=== PATIENT | female | born 2000 | race Caucasian/White ===

== ENCOUNTER 2020-08-24 08:55 | Emergency (ER) | payer OTHER ==
[2020-08-24 09:09] VITALS: BMI 25.8
[2020-08-24] MEDS ORDERED: ASPIRIN 325 MG TABLET PO ONE (09:16)
[2020-08-24] MEDS ORDERED: ACETAMINOPHEN 325 MG TABLET (FP) PO ONE (09:17)
[2020-08-24] MEDS ORDERED: morphine CARPU-JECT 4 MG/1 ML DISP.SYRIN IVPUSH ONE (09:31)
--- OUTSIDE RECORDS SUMMARY | 2020-08-24 09:35 | XMS ---
:2000 Author Organization [facility] Care Team Providers Name Role Phone Radha Quevedo Unavailable Unavailable Other, Doctor Unavailable Unavailable Bridget Colbert Unavailable Unavailable Haja Hammonds Unavailable Unavailable Re-disclosure Warning The records that you are about to access may contain information from federally- assisted alcohol or drug abuse programs. If such information is present, then the following federally mandated warning applies: This information has been disclosed to you from records protected by federal confidentiality rules (42 CFR part 2). The federal rules prohibit you from making any further disclosure of this information unless further disclosure is expressly permitted by the written consent of the person to whom it pertains or as otherwise permitted by 42 CFR part 2. A general authorization for the release of medical or other information is NOT sufficient for this purpose. The Federal rules restrict any use of the information to criminally investigate or prosecute any alcohol or drug abuse patient.The records that you are about to access may contain highly sensitive health information, the redisclosure of which is protected by Article 27-F of the [facility] Public Health law. If you continue you may haveaccess to information: Regarding HIV / AIDS; Provided by facilities licensed or operated by the [facility] Office of Mental Health; or Provided by the [facility] Office for People With Developmental Disabilities. If such information is present, then the following [facility] mandated warning applies: This information has been disclosed to you from confidential records which are protected by state law. State law prohibits you from making any further disclosure of this information without the specific written consent of the person to whom it pertains, or as otherwise permitted by law. Any unauthorized further disclosure in violation of state law may result in a fine or custodial sentence or both. A general authorization for the release of medical or other information is NOT sufficient authorization for further disclosure. Encounters Encounter Providers Location Date Indications Data Source(s ) Inpatient Attender: Haja 5T-5T 08/20/2020 ACUTE KIDNEY [facility] OranAttender: 09:54:[address] [facility] giselle Gill HuAttender: EDT - Doctor 08/23/2020 OtherAdmitter: 11:52:00 AM Haja Hammonds EDT ACUTE KIDNEY FAILURE Patient discharged. Emergency Attender: Doctor 5T-EMERG 08/19/2020 LT [facility] OtherAttender: Radha 10:05:00 AM EDT - SIDE BA [facility] 08/19/2020 PAIN 03:18:00 PM EDT LT [facility] SIDE BACK PAIN Patient discharged. Medications Medication Brand Start Product Dose Route Administrative Pharmacy [facility] Indications Reaction Description Data Name Date Form Instructions Instructions Source(s) Ciprofloxac Cipro [id number] active Cipro [facility] in 500 MG 500 mg 2019 {tab( Health Oral Tablet oral 10:09: s)} System [Cipro] tablet 29 AM Cipro 500 EDT mg oral tablet Avoid prolonged or excessive exposure to direct and/or artificial sunlight while taking this medication.Check with your d octor before becoming .Do not take dairy products, antacids, or iron prepar ations within one hour of this medication.Finish all this medication un less otherwise directed by prescriber.Medication should be taken wi th plenty of water. Ondansetron 4 ondansetron 4 08/19/2020 1 [id number] active Ondansetron [facility] MG mg oral tablet, 02:49:54 PM {tab(s)} Hydrochloride Health Disintegrating disintegrating EDT System Oral Tablet ondansetron 4 mg oral tablet, disintegrating Ibuprofen 800 Alivio 800 mg 08/19/2020 1 [id number] aborted Alivio [facility] MG Oral Tablet oral tablet 02:48:04 PM {tab(s)} Health Alivio 800 mg EDT System oral tablet Do not take this drug if you are pregnan t.It is very important that you take or use this exactly as directed. Do not skip d oses or discontinue unless directed by your doctor.May cause drowsiness or dizziness .Obtain medical advice before taking any non-prescription drugs as some may affec t the action of this medication.Take with food or milk. Ciprofloxacin Cipro 08/19/2020 1 {tab(s)} [id number] active Cipro [facility] 500 MG Oral 500 mg 02:47:24 PM Health Tablet [Cipro] oral EDT Syste m Cipro 500 mg tablet oral tablet Avoid prolonged or excessive exposure to direct and/or artificial sunlight while taking this medication.Check with your d octor before becoming .Do not take dairy products, antacids, or iron prepar ations within one hour of this medication.Finish all this medication un less otherwise directed by prescriber.Medication should be taken wi th plenty of water. Tamsulosin Flomax 08/19/2020 1 {cap(s)} [id number] active Flomax [facility] hydrochloride 0.4 mg 02:46:53 PM Health 0.4 MG Oral oral EDT System Capsule capsule [Flomax] Flomax 0.4 mg oral capsule It is very important that you take or us e this exactly as directed. Do not skip doses or discontinue unless directed by your doctor.May cause drowsiness. Alcohol may intensify this effect. Use care whe n operating dangerous machinery.Some non-prescription drugs may aggravate you r condition. Read all labels carefully. If a warning appears, check with your docto r before taking.Swallow whole. Do not crush. Insurance Providers Payer name Policy type Policy ID Covered Covered green party's Policy P ok / Coverage green party ID relationship to [facility] type carlos Medicaid GME Medicaid [id number] 1 [id number] T [facility] [employer] Medicaid [id number] 1 [id number] Self Pay Self Pay Self Pay 1 Self Pay Problems, Conditions, and Diagnoses Code Display Name Description Problem Type Effective Dates Data Source(s) N20.1 Ureteral calculus, Ureteral calculus, 64393-4 0 [facility] left left 12:00:00 AM EDT Health Sy stem N17.9 Acute kidney Acute kidney 53679-8 08/21/2020 [facility] failure failure 12:00:00 AM EDT Health Sy stem N20.0 [place] [address]-3 08/21/2020 [facility] left side left side 12:00:00 AM EDT Health Sy stem N39.0 UTI (urinary tract UTI (urinary tract 20817-5 0 [facility] infection) infection) 12:00:00 AM EDT Health Sy stem N20.9 Urolithiasis Urolithiasis 19509-4 08/19/2020 [facility] 12:00:00 AM EDT Health Sy stem R10.9 Left flank pain Left flank pain 76343-7 08/19/2020 [facility] 12:00:00 AM EDT Health Sy stem N39.0 Urinary tract UTI (urinary tract Diagnosis 08/21/2020 [facility] infection, site infection) 03:39:00 AM EDT [place] [facility] not specified N20.1 Calculus of ureter Ureteral calculus, Diagnosis 0 [facility] left 03:39:00 AM EDT [facility] N20.0 Calculus of kidney Kidney stone on Diagnosis 08/21/2020 [facility] left side 03:39:00 AM EDT [facility] N17.9 Acute kidney Acute kidney Diagnosis 08/21/2020 [facility] failure, failure 03:39:00 AM EDT [facility] unspecified ACUTE KIDNEY ACUTE KIDNEY Diagnosis 08/21/2020 [facility] FAILURE FAILURE 03:39:00 AM EDT [facility] RT SIDE ABD PAIN RT SIDE ABD PAIN Diagnosis 08/20/2020 [facility] 09:54:00 PM EDT [facility] N20.9 Urinary calculus, Urolithiasis Diagnosis 08/19/2020 [facility] unspecified 10:05:00 AM EDT [facility] R10.9 Unspecified Left flank pain Diagnosis 08/19/2020 [facility] abdominal pain 10:05:[facility] BACK Diagnosis 0 [facility] PAIN PAIN 10:05:00 AM EDT [facility] Surgeries/Procedures Procedure Description Date Indications Data Source(s) CBC w/Auto 08/23/2020 [facility] th Differential- MV Only 06:00:00 AM EDT Sys tem - 08/23/2020 09:57:00 AM EDT XR Fluoroscopy < 1 Hr 08/22/2020 [facility] io Health XR Fluoroscopy < 1 Hr 12:59:00 PM EDT Sys tem - 08/22/2020 12:59:00 PM EDT I. Phosphorus 08/22/2020 [facility] 06:00:00 AM EDT System - 08/22/2020 01:04:56 AM EDT US Renal US Renal 08/21/2020 [facility] 09:12:00 AM EDT System - 08/21/2020 09:12:00 AM EDT XR Chest PA and Left 08/21/2020 [facility] Lateral XR Chest PA and 05:04:00 AM EDT S ystem Left Lateral - 08/21/2020 05:04:00 AM EDT XR Chest AP and Decube 08/21/2020 [facility] Left Lateral 03:44:40 AM EDT System - 08/21/2020 03:54:40 AM EDT Computed tomography of 08/19/2020 [facility] abdomen (procedure) 11:34:00 AM EDT Syste m - 08/19/2020 11:34:00 AM EDT Venous Blood Gas 08/19/2020 [facility] 10:12:09 AM EDT System - 08/19/2020 10:22:00 AM EDT Aerobic Culture, Urine 08/19/2020 [facility] 10:12:09 AM EDT System - 08/19/2020 10:22:00 AM EDT Results ID Date Data Source [id number] 08/23/2020 12:53:46 PM EDT [facility] alth System Name Value Range Interpretation Description Data Sup porting Code Source(s) Document(s ) Deprecated Micro Result Normal (applies Aerobic [facility] Bacteria Final Culture to non-numeric Culture, Health identified Reading results) Urine System in Urine by Note::"MULTIPL Aerobe E BACTERIAL culture MORPHOTYPES PRESENT, POSSIBLE CONTAMINATION, SUGGEST RECOLLECTION IF CLINICALLY INDICATED". ID Date Data Source [id number] 08/23/2020 12:53:46 PM EDT [facility] alth System Name Value Range Interpretation Description Data Sup porting Code Source(s) Document(s ) Color YELLOW Normal (applies Color [facility] to non-numeric Health results) System Specific gravity 1.020 Normal (applies Urine Specific [facility] of Urine to non-numeric [facility] results) System Appearance of CLEAR Normal (applies Urine [facility] Urine to non-numeric Appearance Health results) System Glucose,UA NEGATIVE Normal (applies Glucose, UA [facility] to non-numeric Health results) System BilirubinUrine SMALL Abnormal Bilirubin [facility] (applies to Urine Health non-numeric System results) Protein TRACE Normal (applies Protein [facility] [Mass/volume] in to non-numeric Health Serum or Plasma results) System pH.. 8.5 Above high pH.. [facility] {pH_units} normal Health System Leukocytes 2 {/HPF} Normal (applies White Blood [facility] [#/volume] in to non-numeric Cells Health Unspecified results) System specimen by Automated count Ketones 15 mg/dL Abnormal Ketones UA [facility] [Mass/volume] in (applies to Health Urine non-numeric System results) Nitrate+Nitrite NEGATIVE Normal (applies Nitrite [facility] [Mass/volume] in to non-numeric Health Unspecified results) System specimen Leukocyte TRACE Abnormal Leukocyte [facility] esterase (applies to Esterase Health [Units/volume] non-numeric Concentration System in Urine results) Urobilinogen 1.0 mg/dL Normal (applies Urobilinogen [facility] [Mass/volume] in to non-numeric [facility]A Health Urine results) System Mucus PRESENT Normal (applies Mucus [facility] to non-numeric Health results) System Epithelial cells 5 {/HPF} Normal (applies Epithelial [facility] [Presence] in to non-numeric Cells Health Unspecified results) System specimen by Wet preparation RedBloodCells 20 {/HPF} Normal (applies Red Blood [facility] to non-numeric Cells Health results) System Bacteria 1+ Abnormal Bacteria [facility] [Presence] in (applies to Health Unspecified non-numeric System specimen results) UrineBlood MODERATE Abnormal Urine Blood [facility] (applies to Health non-numeric System results) ID Date Data Source [id number] 08/23/2020 12:53:46 PM EDT [facility] System Name Value Range Interpretation Description Data Sup porting Code Source(s) Document(s ) Amphetamine Negative Normal (applies Amphetamine [facility] [Mass/volume] to non-numeric Level, Urine Health in Urine results) System Cut-off = 1000 ng/mL Benzodiazepines Negative Normal (applies Benzodiazepines, [facility] [Mass/volume] in to non-numeric Urine Health S ystem Urine results) Cut-off = 200 ng/mL Cocaine Negative Normal (applies Cocaine [facility] metabolites.other to non-numeric Metabolite Health System [Mass/volume] in Urine results) Screen, Urine Cut-off = 300 ng/mL Barbiturates Negative Normal (applies to Barbiturate [facility] [Mass/volume] in non-numeric Screen, Urine Health System Urine by Screen results) method Cut-off = 200 ng/mL Phencyclidine Negative Normal (applies Phencyclidine, Urine [facility] [Mass/volume] in to non-numeric Health S ystem Urine results) Cut-off = 25 ng/mL Methadone Negative Normal (applies to Methadone Level, [facility] Health [Mass/volume] in non-numeric Urine System Urine results) Cut-off = 300 ng/mL [id number],Urine Negative Normal (applies to Opiate 300, [facility] non-numeric results) Urine System Cut-off = 300 ng/mL Cannabinoid(THC) Positive Abnormal (applies Cannabinoid (THC) [facility] to non-numeric System results) Cutt-off = 50These results are for medic al treatment only. The positive findings are unconfirmed. Request confirmatory/quanti tative test if needed. ID Date Data Source [id number] 08/23/2020 12:53:46 PM EDT [facility] System Name Value Range Interpretation Description Data Sup porting Code Source(s) Document(s ) Hematocrit 40.1 % Normal (applies Hematocrit [facility] [Volume to non-numeric Health Fraction] of results) System Blood Leukocytes 14.5 Above high WBC Count [facility] [#/volume] in {10^3_uL normal Health Unspecified } System specimen by Automated count Hemoglobin 13.0 Normal (applies Hemoglobin [facility] [Mass/volume] in {gm/dL} to non-numeric Health Blood results) System Erythrocytes 4.45 Normal (applies RBC Count [facility] [#/volume] in {10^6_uL to non-numeric Health Blood by } results) System Automated count Erythrocyte mean 90.1 fl Normal (applies MCV [facility] corpuscular to non-numeric Health volume [Entitic results) System volume] by Automated count Erythrocyte mean 32.4 Below low normal MCHC [facility] corpuscular {gm/dL} Health hemoglobin System concentration [Mass/volume] by Automated count Erythrocyte mean 29.2 pg Normal (applies MCH [facility] corpuscular to non-numeric Health hemoglobin results) System [Entitic mass] by Automated count Monocytes 0.5 Normal (applies Monocyte # [facility] [#/volume] in {10^3_uL to non-numeric Health Blood by Manual } results) System count Platelets 291 Normal (applies Platelet Count [facility] [#/volume] in {10^3_uL to non-numeric Health Plasma by } results) System Automated count Platelet mean 10.7 fl Above high MPV [facility] volume [Entitic normal Health volume] in Blood System by Automated count Erythrocyte 12.4 % Normal (applies RDW-CV [facility] distribution to non-numeric Health width [Entitic results) System volume] by Automated count Eosinophils 0.02 Below low normal Eosinophil # [facility] [#/volume] in {10^3_uL Health Blood } System Basophils 0.03 Normal (applies Basophil # [facility] [#/volume] in {10^3_uL to non-numeric Health Blood by } results) System Automated count Lymphocyte 1.3 Normal (applies Lymphocyte # [facility] percent {10^3_uL to non-numeric Health differential } results) System count (procedure) Neutrophils 12.5 Above high Neutrophil # [facility] [#/volume] in {10^3_uL normal Health Body fluid } System Neutrophils/100 86.8 % Above high Neutrophil % [facility] leukocytes in normal Health Blood by System Automated count Eosinophils/100 0.1 % Normal (applies Eosinophil % [place] [facility] leukocytes in to non-numeric Health Unspecified results) System specimen Basophils/100 0.2 % Normal (applies Basophil % [facility] leukocytes in to non-numeric Health Unspecified results) System specimen by Manual count Monocytes/100 3.3 % Normal (applies Monocyte % [facility] leukocytes in to non-numeric Health Blood results) System Lymphocytes 9.1 % Below low normal Lymphocyte % [facility] [#/volume] in Health Blood by System Automated count Nucleated 0.0 Normal (applies NRBC % [facility] erythrocytes {/100_WB to non-numeric Health [#/volume] in C} results) System Body fluid ImmatureGranuloc 0.5 % Normal (applies Immature [facility] ytes% to non-numeric Granulocytes % Health results) System NRBC# 0.00 Below low normal NRBC # [facility] {10^3_uL Health } System ImmatureGranuloc 0.07 Normal (applies Immature [facility] ytes# {10^3_uL to non-numeric Granulocytes # Health } results) System ID Date Data Source [id number] 08/23/2020 12:53:46 PM EDT [facility] System Name Value Range Interpretation Description Data Sup porting Code Source(s) Document(s ) Creatine 46 {IU/L} Normal (applies Creatine [facility] kinase.MB to non-numeric Kinase, Serum Health Syst em [Mass/volume results) ] in Serum or Plasma ID Date Data Source [id number] 08/23/2020 12:53:46 PM EDT [facility] System Name Value Range Interpretation Code Description Data Samanta rce(s) Supporting Document(s ) Lipase 9 U/L Normal (applies to Lipase, Serum [facility] [Enzymatic non-numeric Health System activity/vo results) lume] in Serum or Plasma ID Date Data Source [id number] 08/23/2020 12:53:46 PM EDT [facility] System Name Value Range Interpretation Description Data Sup porting Code Source(s) Document(s ) Magnesium 2.0 Normal (applies Magnesium, [facility] [Mass/volume] {mEq/L} to non-numeric Serum Health Syst em in Serum or results) Plasma ID Date Data Source [id number] 08/23/2020 12:53:46 PM EDT [facility] System Name Value Range Interpretation Description Data Sup porting Code Source(s) Document(s ) Sodium 141 Normal (applies Sodium, Serum [facility] [Moles/volume] in mmol/L to non-numeric Health Serum or Plasma results) System Chloride 108 Above high Chloride, [facility] [Moles/volume] in mmol/L normal Serum Health Serum or Plasma System Potassium 4.4 Normal (applies Potassium, [facility] [Mass/volume] in mmol/L to non-numeric Serum Health Serum or Plasma results) System Carbon dioxide, 23.0 Normal (applies CO2, Serum [facility] total mmol/L to non-numeric Health [Moles/volume] in results) System Serum or Plasma Glucose 111 Above high Glucose, [facility] [Mass/volume] in mg/dL normal Serum Health Serum or Plasma System TotalProtein 7.3 Normal (applies Total Protein [facility] mg/dl to non-numeric Health results) System Urea nitrogen 10 Normal (applies Blood Urea [facility] [Mass/volume] in mg/dl to non-numeric Nitrogen, Health Serum or Plasma results) Serum System Alkaline 63 Normal (applies Alkaline [facility] phosphatase {IU/L} to non-numeric Phosphatase, Health isoenzymes results) Serum System [Enzymatic activity/volume] in Serum or Plasma by Heat stability Creatinine 0.80 Normal (applies Creatinine, [facility] [Mass/volume] in mg/dl to non-numeric Serum Health Serum or Plasma results) System Bilirubin.total 0.6 Normal (applies Bilirubin, [facility] [Mass/volume] in mg/dl to non-numeric Serum Total Health Serum or Plasma results) System DirectBilirubin 0.2 Normal (applies Direct [facility] mg/dl to non-numeric Bilirubin Health results) System Aspartate 17 Normal (applies Aspartate [facility] aminotransferase {IU/L} to non-numeric Transaminase, Heal th [Enzymatic results) Serum System activity/volume] in Serum or Plasma by With P-5'-P I.Phosphorus 3.1 Normal (applies I. Phosphorus [facility] mg/dl to non-numeric Health results) System Albumin 4.3 Normal (applies Albumin, [facility] [Mass/volume] in {gm/dl} to non-numeric Serum Health Serum or Plasma results) System Alanine 12 Normal (applies Alanine [facility] aminotransferase {IU/L} to non-numeric Aminotransfer Heal th [Enzymatic results) ase, Serum System activity/volume] in Serum or Plasma Urate 3.5 Normal (applies Uric Acid, [facility] [Mass/volume] in mg/dl to non-numeric Serum Health Serum or Plasma results) System A/GRatio 1.43 Normal (applies A/G Ratio [facility] to non-numeric Health results) System Calcium 9.4 Normal (applies Calcium, [facility] [Mass/volume] in mg/dl to non-numeric Total Serum Health Serum or Plasma results) System Anion gap in Serum 10.00 Normal (applies Anion Gap [place] [facility] or Plasma mmol/L to non-numeric Health results) System Glomerular 89.27 Normal (applies GFR [facility] filtration to non-numeric Health rate/1.73 sq results) System M.predicted [Volume Rate/Area] in Serum or Plasma by Creatinine-based formula (CKD-EPI) eGFR will provide clinicians with a more accurate indicator of renal function then the serum creatinine. The eGFR is automa tically calculated from an empiric formula (endorsed by the National Kid[employer] ion) which incorporates age, sex, and race.Clinicians may notice surprisingly low GFR's with serum creatinine valueswithin normal range- particularly in elderly wo men (with low muscle mass).In the hospital setting, the eGFR should add an element of safety in drug dosing, in assessing the risk of IV contrast administration, and in assessing vascular risk.The NKF staging system is as follows:Normal: eGFR >90 with no kidney markersStage 1: eGFR >90 with kidney markers*Stage 2: eGFR 60- 89Stage 3: eGFR 30-59Stage 4: eGFR 15-29Stage 5: eGFR <15 (usually requir ing dialysis)*Markers include: Proteinuria, Hematuria, abnormal imaging-studies, or other blood or urine test abnormalities ID Date Data Source [id number] 08/23/2020 12:53:46 PM EDT [facility] System Name Value Range Interpretation Description Data Sup porting Code Source(s) Document(s ) Leukocytes 12.5 Above high WBC Count [facility] [#/volume] in {10^3_uL normal Health Unspecified } System specimen by Automated count Hematocrit 39.2 % Normal (applies Hematocrit [facility] [Volume to non-numeric Health Fraction] of results) System Blood Erythrocytes 4.41 Normal (applies RBC Count [facility] [#/volume] in {10^6_uL to non-numeric Health Blood by } results) System Automated count Hemoglobin 12.8 Normal (applies Hemoglobin [facility] [Mass/volume] in {gm/dL} to non-numeric Health Blood results) System Erythrocyte mean 29.0 pg Normal (applies MCH [facility] corpuscular to non-numeric Health hemoglobin results) System [Entitic mass] by Automated count Erythrocyte mean 88.9 fl Normal (applies MCV [facility] corpuscular to non-numeric Health volume [Entitic results) System volume] by Automated count Erythrocyte 12.3 % Normal (applies RDW-CV [facility] distribution to non-numeric Health width [Entitic results) System volume] by Automated count Erythrocyte mean 32.7 Below low normal [facility]CH[facility] corpuscular {gm/dL} Health hemoglobin System concentration [Mass/volume] by Automated count Platelets 246 Normal (applies Platelet Count [facility] [#/volume] in {10^3_uL to non-numeric Health Plasma by } results) System Automated count Platelet mean 10.6 fl Above high MPV [facility] volume [Entitic normal Health volume] in Blood System by Automated count Monocytes 1.2 Above high Monocyte # [facility] [#/volume] in {10^3_uL normal Health Blood by Manual } System count Eosinophils 0.04 Below low normal Eosinophil # [facility] [#/volume] in {10^3_uL Health Blood } System Basophils 0.02 Normal (applies Basophil # [facility] [#/volume] in {10^3_uL to non-numeric Health Blood by } results) System Automated count Neutrophils 8.6 Above high Neutrophil # [facility] [#/volume] in {10^3_uL normal Health Body fluid } System Neutrophils/100 68.7 % Normal (applies Neutrophil % [place] [facility] leukocytes in to non-numeric Health Blood by results) System Automated count Monocytes/100 9.8 % Normal (applies Monocyte % [facility] leukocytes in to non-numeric Health Blood results) System Lymphocyte 2.6 Normal (applies Lymphocyte # [facility] percent {10^3_uL to non-numeric Health differential } results) System count (procedure) Eosinophils/100 0.3 % Normal (applies Eosinophil % [place] [facility] leukocytes in to non-numeric Health Unspecified results) System specimen Basophils/100 0.2 % Normal (applies Basophil % [facility] leukocytes in to non-numeric Health Unspecified results) System specimen by Manual count Lymphocytes 20.8 % Below low normal Lymphocyte % [facility] [#/volume] in Health Blood by System Automated count ImmatureGranuloc 0.03 Normal (applies Immature [facility] ytes# {10^3_uL to non-numeric Granulocytes # Health } results) System Nucleated 0.0 Normal (applies NRBC % [facility] erythrocytes {/100_WB to non-numeric Health [#/volume] in C} results) System Body fluid ImmatureGranuloc 0.2 % Normal (applies Immature [facility] ytes% to non-numeric Granulocytes % Health results) System NRBC# 0.00 Below low normal NRBC # [facility] {10^3_uL Health } System ID Date Data Source [id number] 08/23/2020 12:53:46 PM EDT [facility] Name Value Range Interpretation Description Data Sup porting Code Source(s) Document(s ) Potassium 3.9 Normal (applies Potassium, [facility] [Mass/volume] in mmol/L to non-numeric Serum Health Serum or Plasma results) System Sodium 138 Normal (applies Sodium, Serum [facility] [Moles/volume] in mmol/L to non-numeric Health Serum or Plasma results) System Carbon dioxide, 21.0 Below low normal CO2, Serum [facility] total mmol/L [facility] [Moles/volume] in System Serum or Plasma Chloride 104 Normal (applies Chloride, [facility] [Moles/volume] in mmol/L to non-numeric Serum Health Serum or Plasma results) System Urea nitrogen 11 Normal (applies Blood Urea [facility] [Mass/volume] in mg/dl to non-numeric Nitrogen, Health Serum or Plasma results) Serum System Glucose 82 Normal (applies Glucose, [facility] [Mass/volume] in mg/dL to non-numeric Serum Health Serum or Plasma results) System TotalProtein 6.9 Normal (applies Total Protein [facility] mg/dl to non-numeric Health results) System Alkaline 65 Normal (applies Alkaline [facility] phosphatase {IU/L} to non-numeric Phosphatase, Health isoenzymes results) Serum System [Enzymatic activity/volume] in Serum or Plasma by Heat stability Creatinine 1.50 Above high Creatinine, [facility] [Mass/volume] in mg/dl normal Serum Health Serum or Plasma System DirectBilirubin 0.4 Normal (applies Direct [facility] mg/dl to non-numeric Bilirubin Health results) System Aspartate 14 Normal (applies Aspartate [facility] aminotransferase {IU/L} to non-numeric Transaminase, Heal th [Enzymatic results) Serum System activity/volume] in Serum or Plasma by With P-5'-P Bilirubin.total 0.8 Normal (applies Bilirubin, [facility] [Mass/volume] in mg/dl to non-numeric Serum Total Health Serum or Plasma results) System Albumin 4.3 Normal (applies Albumin, [facility] [Mass/volume] in {gm/dl} to non-numeric Serum Health Serum or Plasma results) System I.Phosphorus 3.9 Normal (applies I. Phosphorus [facility] mg/dl to non-numeric Health results) System A/GRatio 1.65 Normal (applies A/G Ratio [facility] to non-numeric Health results) System Calcium 9.3 Normal (applies Calcium, [facility] [Mass/volume] in mg/dl to non-numeric Total Serum Health Serum or Plasma results) System Alanine 10 Normal (applies Alanine [facility] aminotransferase {IU/L} to non-numeric Aminotransfer Heal th [Enzymatic results) ase, Serum System activity/volume] in Serum or Plasma Anion gap in Serum 13.00 Above high Anion Gap [facility] or Plasma mmol/L normal Health System Urate 3.1 Normal (applies Uric Acid, [facility] [Mass/volume] in mg/dl to non-numeric Serum Health Serum or Plasma results) System Glomerular 43.22 Normal (applies GFR [facility] filtration to non-numeric Health rate/1.73 sq results) System M.predicted [Volume Rate/Area] in Serum or Plasma by Creatinine-based formula (CKD-EPI) eGFR will provide clinicians with a more accurate indicator of renal function then the serum creatinine. The eGFR is automa tically calculated from an empiric formula (endorsed by the [employer] ion) which incorporates age, sex, and race.Clinicians may notice surprisingly low GFR's with serum creatinine valueswithin normal range- particularly in elderly wo men (with low muscle mass).In the hospital setting, the eGFR should add an element of safety in drug dosing, in assessing the risk of IV contrast administration, and in assessing vascular risk.The NKF staging system is as follows:Normal: eGFR >90 with no kidney markersStage 1: eGFR >90 with kidney markers*Stage 2: eGFR 60- 89Stage 3: eGFR 30-59Stage 4: eGFR 15-29Stage 5: eGFR <15 (usually requir ing dialysis)*Markers include: Proteinuria, Hematuria, abnormal imaging-studies, or other blood or urine test abnormalities ID Date Data Source [id number] 08/23/2020 12:53:46 PM EDT [facility] Name Value Range Interpretation Description Data Sup porting Code Source(s) Document(s ) Color YELLOW Normal (applies Color [facility] to non-numeric Health results) System Specific gravity 1.010 Normal (applies Urine Specific [facility] of Urine to non-numeric [facility] results) System Appearance of SL CLOUDY Normal (applies Urine [facility] Urine to non-numeric Appearance Health results) System Protein NEGATIVE Normal (applies Protein [facility] [Mass/volume] in to non-numeric Health Serum or Plasma results) System Glucose,UA NEGATIVE Normal (applies Glucose, UA [facility] to non-numeric Health results) System pH.. 6.0 Normal (applies pH.. [facility] {pH_units} to non-numeric Health results) System BilirubinUrine NEGATIVE Normal (applies Bilirubin [facility] to non-numeric Urine Health results) System Urobilinogen 0.2 mg/dL Normal (applies Urobilinogen [facility] [Mass/volume] in to non-numeric UA Health Urine results) System Nitrate+Nitrite NEGATIVE Normal (applies Nitrite [facility] [Mass/volume] in to non-numeric Health Unspecified results) System specimen Ketones 15 mg/dL Abnormal Ketones UA [facility] [Mass/volume] in (applies to Health Urine non-numeric System results) Leukocyte LARGE Abnormal Leukocyte [facility] esterase (applies to Esterase Health [Units/volume] non-numeric Concentration System in Urine results) Leukocytes 27 {/HPF} Normal (applies White Blood [facility] [#/volume] in to non-numeric Cells Health Unspecified results) System specimen by Automated count Epithelial cells 20 {/HPF} Normal (applies Epithelial [facility] [Presence] in to non-numeric Cells Health Unspecified results) System specimen by Wet preparation RedBloodCells 2 {/HPF} Normal (applies Red Blood [facility] to non-numeric Cells Health results) System Bacteria 3+ Abnormal Bacteria [facility] [Presence] in (applies to Health Unspecified non-numeric System specimen results) UrineBlood TRACE-LYSE Abnormal Urine Blood [facility] D (applies to Health non-numeric System results) ID Date Data Source [id number] 08/23/2020 12:53:46 PM EDT [facility] Name Value Range Interpretation Description Data Sup porting Code Source(s) Document(s ) Amphetamine Negative Normal (applies Amphetamine [facility] [Mass/volume] to non-numeric Level, Urine Health in Urine results) System Cut-off = 1000 ng/mL Barbiturates Negative Normal (applies to Barbiturate [facility] [Mass/volume] in non-numeric Screen, Urine Health System Urine by Screen results) method Cut-off = 200 ng/mL Benzodiazepines Negative Normal (applies Benzodiazepines, [facility] [Mass/volume] in to non-numeric Urine Health S ystem Urine results) Cut-off = 200 ng/mL Cocaine Negative Normal (applies Cocaine [facility] metabolites.other to non-numeric Metabolite Health System [Mass/volume] in Urine results) Screen, Urine Cut-off = 300 ng/mL Methadone Negative Normal (applies to Methadone Level, [facility] [Mass/volume] in non-numeric Urine System Urine results) Cut-off = 300 ng/mL [id number],Urine Negative Normal (applies to Opiate 300, [facility] non-numeric results) Urine System Cut-off = 300 ng/mL Phencyclidine Negative Normal (applies Phencyclidine, Urine [facility] [Mass/volume] in to non-numeric Health S ystem Urine results) Cut-off = 25 ng/mL Cannabinoid(THC) Positive Abnormal (applies Cannabinoid (THC) [facility] to non-numeric System results) Cutt-off = 50These results are for medic al treatment only. The positive findings are unconfirmed. Request confirmatory/quanti tative test if needed. ID Date Data Source [id number] 08/23/2020 12:53:46 PM EDT [facility] Name Value Range Interpretation Description Data Sup porting Code Source(s) Document(s ) Influenza virus Negative Normal (applies Flu A Viral [facility] A RNA [Presence] to non-numeric RNA Health in Unspecified results) System specimen by Probe and target amplification method Influenza virus Negative Normal (applies Flu B Viral [facility] B RNA [Presence] to non-numeric RNA Health in Unspecified results) System specimen by Probe and target amplification method ID NOW Influenza A & B 2 is an automated multiplex assay that utilizes isothermal nucleic acid amplification technology fo r the differential and qualitative detection of influenza A and influenza B viral nuc leic acids ID Date Data Source [id number] 08/23/2020 12:53:46 PM EDT [facility] Name Value Range Interpretation Description Data Sup porting Code Source(s) Document(s ) 06435-2 NEGATIVE Testing Normal (applies COVID-19.. [facility] was performed to non-numeric Health Syst em using [place] ID results) NOW COVID-19, an isothermal nucleic acid amplification technology for the qualitative detection of nucleic acid from the SARS-CoV-2 viral RNA in respiratory specimens. The ID NOW COVID-19 test has been approved by the Food and Drug Administration (FDA) under an Emergency Use Authorization for use by authorized laboratories. Reference Range: NEGATIVE . ID Date Data Source [id number] 08/23/2020 12:53:46 PM EDT [facility] Name Value Range Interpretation Description Data Source(s ) Supporting Code Document(s ) 18572-5 NEGATIVE Normal (applies to SARS-COV-2 IgG [facility] non-numeric [facility] System results) Results of antibody testing should not b e used to determine fitness for work or isolation status.It is not known for [place] whether individuals infected with SARS-CoV-2 who subsequently recover will be protected, either fully or partially, from infection with SARS-CoV-2 or how lo ng protective immunity may last. It is also not known whether the presence or absenc e of antibody can predict protection from infection in the future.Results from ant ibody testing should not be used as the sole basis to diagnose or exclude SARS-CoV-2 infection or to inform infection status.Positive results may be due to pa st or present infection with [id number] coronavirus strains, such as coronavirus HKU1, NL63, OC43, or 229E.Not for the screening of donated blood.This test has been authorized by the FDA under an emergency authorization (EUA) for use by authorized laboratories. Reference Range: Negative . ID Date Data Source [id number] 08/23/2020 12:53:46 PM EDT [facility] Name Value Range Interpretation Description Data Sup porting Code Source(s) Document(s ) D Ab [Titer] in Positive Normal (applies Rh [facility] Serum or Plasma to non-numeric Health results) System Type A Normal (applies Type [facility] to non-numeric Health results) System AntibodyScreen Negative Normal (applies Antibody [facility] to non-numeric Screen Health results) System ID Date Data Source [id number] 08/23/2020 12:53:46 PM EDT [facility] Name Value Range Interpretation Description Data Sup porting Code Source(s) Document(s ) Prothrombintim 13.00 Above high normal Prothrombin [place] [facility] e(PT) {seconds time (PT) Health System } INR in Blood 1.25 Above high normal INR Result [facility] by Coagulation {Ratio} Health System assay Normal = 0.7-1.1Therapeutic = 2.0-3.0Mec hanical Heart = 3.0-4.5 ID Date Data Source [id number] 08/23/2020 12:53:46 PM EDT [facility] Name Value Range Interpretation Description Data Sup porting Code Source(s) Document(s ) aPTT in Blood 27.7 Normal (applies Activated [facility] by Coagulation {Seconds to non-numeric Partial Health assay } results) Thromboplastin System Time ID Date Data Source [id number] 08/23/2020 12:53:46 PM EDT [facility] Name Value Range Interpretation Description Data Sup porting Code Source(s) Document(s ) Leukocytes 11.2 Above high WBC Count [facility] [#/volume] in {10^3_uL normal Health Unspecified } System specimen by Automated count Erythrocytes 3.90 Normal (applies RBC Count [facility] [#/volume] in {10^6_uL to non-numeric Health Blood by } results) System Automated count Hematocrit 35.4 % Below low normal Hematocrit [facility] [Volume Health Fraction] of System Blood Hemoglobin 11.4 Below low normal Hemoglobin [facility] [Mass/volume] in {gm/dL} Health Blood System Erythrocyte mean 90.8 fl Normal (applies MCV [facility] corpuscular to non-numeric Health volume [Entitic results) System volume] by Automated count Erythrocyte mean 29.2 pg Normal (applies MCH [facility] corpuscular to non-numeric Health hemoglobin results) System [Entitic mass] by Automated count Erythrocyte mean 32.2 Below low normal MCHC [facility] corpuscular {gm/dL} Health hemoglobin System concentration [Mass/volume] by Automated count Erythrocyte 12.4 % Normal (applies RDW-CV [facility] distribution to non-numeric Health width [Entitic results) System volume] by Automated count Platelet mean 11.0 fl Above high MPV [facility] volume [Entitic normal Health volume] in Blood System by Automated count Platelets 202 Normal (applies Platelet Count [facility] [#/volume] in {10^3_uL to non-numeric Health Plasma by } results) System Automated count Monocytes 1.2 Above high Monocyte # [facility] [#/volume] in {10^3_uL normal Health Blood by Manual } System count Neutrophils 7.5 Normal (applies Neutrophil # [facility] [#/volume] in {10^3_uL to non-numeric Health Body fluid } results) System Eosinophils 0.06 Normal (applies Eosinophil # [facility] [#/volume] in {10^3_uL to non-numeric Health Blood } results) System Lymphocyte 2.3 Normal (applies Lymphocyte # [facility] percent {10^3_uL to non-numeric Health differential } results) System count (procedure) Basophils 0.02 Normal (applies Basophil # [facility] [#/volume] in {10^3_uL to non-numeric Health Blood by } results) System Automated count Neutrophils/100 67.2 % Normal (applies Neutrophil % [place] [facility] leukocytes in to non-numeric Health Blood by results) System Automated count Monocytes/100 11.1 % Normal (applies Monocyte % [facility] leukocytes in to non-numeric Health Blood results) System Basophils/100 0.2 % Normal (applies Basophil % [facility] leukocytes in to non-numeric Health Unspecified results) System specimen by Manual count Eosinophils/100 0.5 % Normal (applies Eosinophil % [place] [facility] leukocytes in to non-numeric Health Unspecified results) System specimen ImmatureGranuloc 0.4 % Normal (applies Immature [facility] ytes% to non-numeric Granulocytes % Health results) System Lymphocytes 20.6 % Below low normal Lymphocyte % [facility] [#/volume] in Health Blood by System Automated count Nucleated 0.0 Normal (applies NRBC % [facility] erythrocytes {/100_WB to non-numeric Health [#/volume] in C} results) System Body fluid ImmatureGranuloc 0.05 Normal (applies Immature [facility] ytes# {10^3_uL to non-numeric Granulocytes # Health } results) System NRBC# 0.00 Below low normal NRBC # [facility] {10^3_uL Health } System ID Date Data Source [id number] 08/23/2020 12:53:46 PM EDT [facility] Name Value Range Interpretation Description Data Sup porting Code Source(s) Document(s ) Sodium 139 Normal (applies Sodium, Serum [facility] [Moles/volume mmol/L to non-numeric Health Syst em ] in Serum or results) Plasma Potassium 4.1 Normal (applies Potassium, [facility] [Mass/volume] mmol/L to non-numeric Serum Health Syst em in Serum or results) Plasma Chloride 111 Above high normal Chloride, [facility] [Moles/volume mmol/L Serum Health System ] in Serum or Plasma ok Carbon dioxide, total 18.0 mmol/L Below low CO2, Serum [facility] [facility] [Moles/volume] in normal System Serum or Plasma TotalProtein 5.8 mg/dl Below low Total Protein [facility] normal System Glucose [Mass/volume] 70 mg/dL Normal Glucose, Serum [facility] in Serum or Plasma (applies to System non-numeric results) ok Urea nitrogen 10 mg/dl Normal (applies Blood Urea [facility] [Mass/volume] in Serum to non-numeric Nitrogen, Se rum Health System or Plasma results) Creatinine 1.20 mg/dl Normal (applies Creatinine, [facility] [Mass/volume] in Serum to non-numeric Serum He alth System or Plasma results) Bilirubin.total 0.5 mg/dl Normal (applies Bilirubin, [facility] [Mass/volume] in Serum to non-numeric Serum Total Health System or Plasma results) Alkaline phosphatase 57 {IU/L} Normal (applies Alkaline [facility] isoenzymes [Enzymatic to non-numeric Phosphatase, Health System activity/volume] in results) Serum Serum or Plasma by Heat stability DirectBilirubin 0.2 mg/dl Normal (applies Direct [facility] to non-numeric Bilirubin Health System results) Aspartate 12 {IU/L} Normal (applies Aspartate [facility] aminotransferase to non-numeric Transaminase, [facility] System [Enzymatic results) Serum activity/volume] in Serum or Plasma by With P-5'-P Albumin [Mass/volume] 3.4 {gm/dl} Below low normal Albumin, Serum [facility] in Serum or Plasma Health Syst em ok I.Phosphorus 3.8 mg/dl Normal (applies I. Phosphorus [facility] to non-numeric Health System results) Alanine 7 {IU/L} Normal (applies Alanine [facility] aminotransferase to non-numeric Aminotransferase H [facility] System [Enzymatic results) , Serum activity/volume] in Serum or Plasma Calcium [Mass/volume] 8.1 mg/dl Below low normal Calcium, To domi [facility] in Serum or Plasma Serum Health Syst em ok Urate [Mass/volume] 2.9 mg/dl Normal (applies to Uric Acid, [facility] in Serum or Plasma non-numeric Serum System results) A/GRatio 1.42 Normal (applies to A/G Ratio [facility] [employer] non-numeric System results) Glomerular filtration 55.91 Normal (applies to GFR [facility] [employer] rate/1.73 sq non-numeric System M.predicted [Volume results) Rate/Area] in Serum or Plasma by Creatinine-based formula (CKD-EPI) eGFR will provide clinicians with a more accurate indicator of renal function then the serum creatinine. The eGFR is automa tically calculated from an empiric formula (endorsed by the National Kidney [employer] ion) which incorporates age, sex, and race.Clinicians may notice surprisingly low GFR's with serum creatinine valueswithin normal range- particularly in elderly wo men (with low muscle mass).In the hospital setting, the eGFR should add an element of safety in drug dosing, in assessing the risk of IV contrast administration, and in assessing vascular risk.The NKF staging system is as follows:Normal: eGFR >90 with no kidney markersStage 1: eGFR >90 with kidney markers*Stage 2: eGFR 60- 89Stage 3: eGFR 30-59Stage 4: eGFR 15-29Stage 5: eGFR <15 (usually requir ing dialysis)*Markers include: Proteinuria, Hematuria, abnormal imaging-studies, or other blood or urine test abnormalities Anion gap in 10.00 mmol/L Normal (applies to Anion Gap [facility] [employer] Serum or Plasma non-numeric results) Sys tem ID Date Data Source [id number] 08/23/2020 12:53:46 PM EDT [facility] System Name Value Range Interpretation Description Data Sup porting Code Source(s) Document(s ) Leukocytes 6.8 Normal (applies WBC Count [facility] [#/volume] in {10^3_uL to non-numeric Health Unspecified } results) System specimen by Automated count Erythrocytes 3.66 Below low normal RBC Count [facility] [#/volume] in {10^6_uL Health Blood by } System Automated count Hemoglobin 10.6 Below low normal Hemoglobin [facility] [Mass/volume] in {gm/dL} Health Blood System Erythrocyte mean 89.9 fl Normal (applies MCV [facility] corpuscular to non-numeric Health volume [Entitic results) System volume] by Automated count Hematocrit 32.9 % Below low normal Hematocrit [facility] [Volume Health Fraction] of System Blood Erythrocyte mean 29.0 pg Normal (applies MCH [facility] corpuscular to non-numeric Health hemoglobin results) System [Entitic mass] by Automated count Erythrocyte mean 32.2 Below low normal MCHC [facility] corpuscular {gm/dL} Health hemoglobin System concentration [Mass/volume] by Automated count Erythrocyte 12.2 % Normal (applies RDW-CV [facility] distribution to non-numeric Health width [Entitic results) System volume] by Automated count Platelets 188 Normal (applies Platelet Count [facility] [#/volume] in {10^3_uL to non-numeric Health Plasma by } results) System Automated count Platelet mean 11.3 fl Above high MPV [facility] volume [Entitic normal Health volume] in Blood System by Automated count Monocytes 0.7 Normal (applies Monocyte # [facility] [#/volume] in {10^3_uL to non-numeric Health Blood by Manual } results) System count Eosinophils 0.13 Normal (applies Eosinophil # [facility] [#/volume] in {10^3_uL to non-numeric Health Blood } results) System Basophils 0.01 Normal (applies Basophil # [facility] [#/volume] in {10^3_uL to non-numeric Health Blood by } results) System Automated count Neutrophils 3.6 Normal (applies Neutrophil # [facility] [#/volume] in {10^3_uL to non-numeric Health Body fluid } results) System Lymphocyte 2.4 Normal (applies Lymphocyte # [facility] percent {10^3_uL to non-numeric Health differential } results) System count (procedure) Neutrophils/100 52.8 % Below low normal Neutrophil % [facility] leukocytes in Health Blood by System Automated count Monocytes/100 10.1 % Normal (applies Monocyte % [facility] leukocytes in to non-numeric Health Blood results) System Eosinophils/100 1.9 % Normal (applies Eosinophil % [place] [facility] leukocytes in to non-numeric Health Unspecified results) System specimen Basophils/100 0.1 % Normal (applies Basophil % [facility] leukocytes in to non-numeric Health Unspecified results) System specimen by Manual count Lymphocytes 34.8 % Normal (applies Lymphocyte % [facility] [#/volume] in to non-numeric Health Blood by results) System Automated count ImmatureGranuloc 0.3 % Normal (applies Immature [facility] ytes% to non-numeric Granulocytes % Health results) System ImmatureGranuloc 0.02 Normal (applies Immature [facility] ytes# {10^3_uL to non-numeric Granulocytes # Health } results) System Nucleated 0.0 Normal (applies NRBC % [facility] erythrocytes {/100_WB to non-numeric Health [#/volume] in C} results) System Body fluid NRBC# 0.00 Below low normal NRBC # [facility] {10^3_uL Health } System ID Date Data Source [id number] 08/23/2020 12:53:46 PM EDT [facility] Name Value Range Interpretation Description Data Sup porting Code Source(s) Document(s ) Magnesium 1.6 Normal (applies Magnesium, [facility] [Mass/volume] {mEq/L} to non-numeric Serum Health Syst em in Serum or results) Plasma ID Date Data Source [id number] 08/23/2020 12:53:46 PM EDT [facility] Name Value Range Interpretation Description Data Sup porting Code Source(s) Document(s ) Sodium 139 Normal (applies Sodium, Serum [facility] [Moles/volume] in mmol/L to non-numeric Health Serum or Plasma results) System Potassium 3.8 Normal (applies Potassium, [facility] [Mass/volume] in mmol/L to non-numeric Serum Health Serum or Plasma results) System Chloride 110 Above high Chloride, [facility] [Moles/volume] in mmol/L normal Serum Health Serum or Plasma System Carbon dioxide, 21.0 Below low normal CO2, Serum [facility] total mmol/L Health [Moles/volume] in System Serum or Plasma TotalProtein 5.0 Below low normal Total Protein [facility] mg/dl Health System Glucose 73 Normal (applies Glucose, [facility] [Mass/volume] in mg/dL to non-numeric Serum Health Serum or Plasma results) System Urea nitrogen 5 mg/dl Below low normal Blood Urea [facility] [Mass/volume] in Nitrogen, Health Serum or Plasma Serum System Creatinine 0.70 Normal (applies Creatinine, [facility] [Mass/volume] in mg/dl to non-numeric Serum Health Serum or Plasma results) System Alkaline 47 Normal (applies Alkaline [facility] phosphatase {IU/L} to non-numeric Phosphatase, Health isoenzymes results) Serum System [Enzymatic activity/volume] in Serum or Plasma by Heat stability DirectBilirubin 0.2 Normal (applies Direct [facility] mg/dl to non-numeric Bilirubin Health results) System Bilirubin.total 0.3 Normal (applies Bilirubin, [facility] [Mass/volume] in mg/dl to non-numeric Serum Total Health Serum or Plasma results) System Aspartate 9 Normal (applies Aspartate [facility] aminotransferase {IU/L} to non-numeric Transaminase, [facility]al [facility] [Enzymatic results) Serum System activity/volume] in Serum or Plasma by With P-5'-P I.Phosphorus 3.2 Normal (applies I. Phosphorus [facility] mg/dl to non-numeric Health results) System Albumin 3.2 Below low normal Albumin, [facility] [Mass/volume] in {gm/dl} Serum Health Serum or Plasma System Alanine 8 Normal (applies Alanine [facility] aminotransferase {IU/L} to non-numeric Aminotransfer [facility]al th [Enzymatic results) ase, Serum System activity/volume] in Serum or Plasma Calcium 8.0 Below low normal Calcium, [facility] [Mass/volume] in mg/dl Total Serum Health Serum or Plasma System A/GRatio 1.78 Normal (applies A/G Ratio [facility] to non-numeric Health results) System Urate 2.7 Normal (applies Uric Acid, [facility] [Mass/volume] in mg/dl to non-numeric Serum Health Serum or Plasma results) System Anion gap in Serum 8.00 Normal (applies Anion Gap [place] alexa or Plasma mmol/L to non-numeric Health results) System Glomerular > 90 Normal (applies GFR [facility] filtration to non-numeric Health rate/1.73 sq results) System M.predicted [Volume Rate/Area] in Serum or Plasma by Creatinine-based formula (CKD-EPI) eGFR will provide clinicians with a more accurate indicator of renal function then the serum creatinine. The eGFR is automa tically calculated from an empiric formula (endorsed by the National [employer] ion) which incorporates age, sex, and race.Clinicians may notice surprisingly low GFR's with serum creatinine valueswithin normal range- particularly in elderly wo men (with low muscle mass).In the hospital setting, the eGFR should add an element of safety in drug dosing, in assessing the risk of IV contrast administration, and in assessing vascular risk.The NKF staging system is as follows:Normal: eGFR >90 with no kidney markersStage 1: eGFR >90 with kidney markers*Stage 2: eGFR 60- 89Stage 3: eGFR 30-59Stage 4: eGFR 15-29Stage 5: eGFR <15 (usually requir ing dialysis)*Markers include: Proteinuria, Hematuria, abnormal imaging-studies, or other blood or urine test abnormalities ID Date Data Source [id number] 08/23/2020 12:53:46 PM EDT [facility] Name Value Range Interpretation Description Data Sup porting Code Source(s) Document(s ) Leukocytes 8.8 Normal (applies WBC Count [facility] [#/volume] in {10^3_uL to non-numeric Health Unspecified } results) System specimen by Automated count Erythrocytes 4.13 Normal (applies RBC Count [facility] [#/volume] in {10^6_uL to non-numeric Health Blood by } results) System Automated count Hemoglobin 12.0 Normal (applies Hemoglobin [facility] [Mass/volume] in {gm/dL} to non-numeric Health Blood results) System Hematocrit 36.1 % Normal (applies Hematocrit [facility] [Volume to non-numeric Health Fraction] of results) System Blood Erythrocyte mean 87.4 fl Normal (applies MCV [facility] corpuscular to non-numeric Health volume [Entitic results) System volume] by Automated count Erythrocyte mean 29.1 pg Normal (applies MCH [facility] corpuscular to non-numeric Health hemoglobin results) System [Entitic mass] by Automated count Erythrocyte mean 33.2 Normal (applies MCHC [facility] corpuscular {gm/dL} to non-numeric Health hemoglobin results) System concentration [Mass/volume] by Automated count Erythrocyte 12.0 % Normal (applies RDW-CV [facility] distribution to non-numeric Health width [Entitic results) System volume] by Automated count Platelets 224 Normal (applies Platelet [facility] [#/volume] in {10^3_uL to non-numeric Count Health Plasma by } results) System Automated count Platelet mean 10.6 fl Above high normal MPV [facility] volume [Entitic Health volume] in Blood System by Automated count ID Date Data Source [id number] 08/22/2020 12:59:00 PM EDT [facility] Fluoroscopy for OR procedureHISTORY:Left renal stoneFINDINGS:Fluoroscopy was provided for insertion of left ureteralcatheter.P lease correlate with the procedural report.A leftureteral stent is seen, the proximal portion is withinthe upper calyx.Fluoroscopy time 1.2minutes.IMPRESSION:Fluoroscopy p rovided for OR procedure.ElectronicallySigned:Yahir orozco, at 17:10 EDTTel , Service support [phone] Name Value Range Interpretation Code Description Data Samanta rce(s) Supporting Document(s ) ID Date Data Source [id number] 08/21/2020 09:12:00 AM EDT [facility] Retroperitoneal ultrasoundCLINICAL HISTO RY: Acute renal failureReal-time scanning was performed. Abdominal aorta and inferior vena cava are normal in caliber. Right kidney measures 10.3 cmin length and the left kidney measures 11.9 cm in length. Nohydronephrosis, calculus, mass, or per inephric fluidcollectionsseen bilaterally. Renal cortical thickness is within lg llimits. Urinary bladder volume is 393cc. Post void urinarybladder volume is 10 cc .IMPRESSION:No hydronephrosis. Left UVJ calculusdescribed on prior CT of08/19/20 20 is not visualized on the submitted images.ElectronicallySigned:Matthew Velazquez efrain, at 9:59 EDTTel , Service support ,[phone] Name Value Range Interpretation Code Description Data Samanta rce(s) Supporting Document(s ) ID Date Data Source [id number] 08/21/2020 05:04:00 AM EDT [facility] HISTORY: Leukocytosis.No comparison.Find ings:Frontal and lateral views of the chest.LUNG PARENCHYMA: No acute focal ai rspace disease or mass lesion.PLEURA: No pleural effusion.No pneumothorax.HEART/G REAT VESSELS: Cardiomediastinal silhouette isunremarkable.BONES: Osseousstructures are unremarkable for age.IMPRESSION:Chest with no acute disease.Electronically S igned by Love Mccracken MD on 08/21/2020 at 0524 Reported and signed by: [facility] Physician ServicesSHCR DR LOVE MCCRACKEN [phone] Signed:Love Mccracken MD at 5:23 EDTTel ,Service support , [phone] Name Value Range Interpretation Code Description Data Samanta rce(s) Supporting Document(s ) ID Date Data Source [id number] 08/21/2020 03:53:00 AM EDT [facility] Name Value Range Interpretation Code Description Data Samanta rce(s) Supporting Document(s ) COVID-19.. [facility] This lab was ordered by [facility] and reported by [facility]. ID Date Data Source [id number] 08/19/2020 11:34:00 AM EDT [facility] STUDY: CT ABDOMEN AND PELVIS WITHOUT CO NTRASTREASON FOR EXAM: Female, 20 years old. Nephrolithiasis;RADIATION DOSAGE ( If Supplied By Facility): DLP = ( 537 ) mGycmTECHNIQUE:Transaxial images were ob tained from the dome ofthe diaphragm to the symphysis pubis were performedwithoutint ravenous contrast. Sagittal and coronal images werereconstructed.Individualized doseoptimization techniques were used for thisCT.COMPARISON:None. FINDINGS:Please note that assessment is limitedsecondary to the la ck ofintravenous contrast.Allergy Specialist: Unremarkable.Visualized Chest:Thelung ba ses are clear. There are no pulmonary nodules.There is no visualized pleural e ffusion.There is nopericardial effusion.The heart is not grossly abnormal allowing f or the technique.The visualizedesophagus is unremarkable.Visualized soft tissues of the chest wall are unremarkable.Abdomen:Theliver is unremar kable.The gallbladder is unremarkable.The spleen is unremarkable.Pancreas isunrema rkable.Adrenal glands are unremarkable.Kidneys are unremarkable. T here is no hydronephrosis ormass.There is no gross hydroureter. There appears to be a calcifiedstone at the left UVJ measuringapproximately 0.3 cm. This isb est appreciated on axial image 277 series 3.The bladder isunremarkable.There is no significant pelvic fluid present.Reproductive structures are unre markable.Thecolon is unremarkable.The appendix is not complimentary identified . There are noright lower quadrantinflammatory changes identified to suggestappendicitis.The stomach is unremarkableThe small bowel isunremarkab le.There is no significant pathologic lymphadenopathy.There is no abdominal ao rticaneurysm.There is no acute osseous abnormality. There is no suspiciousosse ous lesion present.Thesubcutaneous soft tissues are unremarkable.There is no janice e air.IMPRESSION:1. There is a0.3 cm calcified stone at the left UVJ asdetail ed above. This does not appear to be causingsignificantobstructing hydrourete r nephrosis.2. For further findings please refer toabove.Electronically Signed:Endy Davison, at 12:31 EDTTel , Servicesupport [phone], [phone] Name Value Range Interpretation Code Description Data Samanta rce(s) Supporting Document(s ) Procedure Vital Signs ID Date Data Source UNK Name Value Range Interpretation Code Description Data Source(s) Body mass index 24.9 kg/m2 24.9 kg/m2 [facility] (BMI) [Ratio] [facility] Syst em Body temperature 99.3 [degF] 0 - 200 Normal (applies to 99.3 [degF ] [facility] non-numeric results) [facility] Body temperature 37.3 Betty 0 - 99.9 Normal (applies to 37.3 Betty [facility] non-numeric results) [facility] Diastolic blood 59 mm[Hg] 0 - 999 Below low normal 59 mm[Hg] [facility] Systolic blood 119 mm[Hg] 0 - 999 Normal (applies to 119 mm[Hg] [facility] pressure non-numeric results) [facility] Oxygen saturation 100 % 0 - 999 Normal (applies to 100 % [facility] in Arterial blood non-numeric results) Health System by Pulse oximetry Respiratory rate 17 0 - 999 Normal (applies to 17 [facility] non-numeric results) [facility] Heart rate 84 0 - 999 Normal (applies to 84 [facility] non-numeric results) [facility] Body weight 61.4 kg 61.4 kg [facility] Body surface area 1.6 m2 1.6 m2 [facility] Derived from [employer] Syste m formula Body height 160.02 cm 160.02 cm [facility] Body temperature 98.2 [degF] 0 - 200 Normal (applies to 98.2 [degF ] [facility] non-numeric results) [facility] Body temperature 36.7 Betty 0 - 99.9 Normal (applies to 36.7 Betty [facility] non-numeric results) [facility] Diastolic blood 70 mm[Hg] 0 - 999 Normal (applies to 70 mm[Hg] [facility] pressure non-numeric results) [facility] Systolic blood 140 mm[Hg] 0 - 999 Above high normal 140 mm[Hg] [facility] pressure [facility] Oxygen saturation 99 % 0 - 999 Normal (applies to 99 % [facility] in Arterial blood non-numeric results) Health System by Pulse oximetry Respiratory rate 17 0 - 999 Normal (applies to 17 [facility] non-numeric results) [facility] Heart rate 88 0 - 999 Normal (applies to 88 [facility] non-numeric results) [facility] Body surface area 1.7 m2 1.7 m2 [facility] Derived from [employer] Syste m formula Body mass index 26.5 kg/m2 26.5 kg/m2 [facility] (BMI) [Ratio] [facility] Syst [facility] Body weight 68.03 kg 68.03 kg [facility] Body height 160.02 cm 160.02 cm [facility] Patient Treatment Plan of Care Planned Activity Planned Date Details Description Data Source (s) Ciprofloxacin 500 MG Oral 08/23/2020 [facility] Tablet [Cipro] 10:09:29 AM EDT System Ondansetron 4 MG 08/19/2020 [facility] Health Disintegrating Oral Tablet 02:49:54 PM EDT System Ibuprofen 800 MG Oral 08/19/2020 [facility] Health Tablet 02:48:04 PM EDT System Ciprofloxacin 500 MG Oral 08/19/2020 [facility] Tablet [Cipro] 02:47:24 PM EDT System Tamsulosin hydrochloride 08/19/2020 [facility] 0.4 MG Oral Capsule 02:46:53 PM EDT [facility] lomax [Flomax]
[2020-08-24] MEDS ORDERED: MORPHINE SULFATE 2 MG/ML VIAL ONE (09:37)
--- NOTE | 2020-08-24 09:51 | PDOC ---
Documentation entered by Cindy Ball SCRIBE, acting as scribe for Marcelle Tang MD. Marcelle Tang MD: This documentation has been prepared by the vickiibeQuinn Lincy, SCRIBE, under my direction and personally reviewed by me in its entirety. I confirm that the documentation accurately reflects all work, treatment, procedures, and medical decision making performed by me. History of Present Illness - General Chief Complaint: Back Pain Stated Complaint: POSSIBLE KIDNEY STONES Time Seen by Provider: 08/24/20 09:20 History Source: Patient Exam Limitations: No Limitations - History of Present Illness Initial Comments: 08/24/20 10:00 The patient is a 20-year-old female with a past medical history significant for Kidney stones who presents to the emergency department with flank pain. The patient reports she was seen at [facility] ER 5 days ago for sharp flank pain, was diagnosed with Kidney stones, and discharged home. The patient reports following up with Urology (Dr. Krishnamurthy) 2 days ago who placed a stent, which was removed yesterday. The patient reports the pains been constant since the ER visit, however it worsened acutely in severity today. The patient reports L. kidney pain radiating around to the left lower abdomen, associated with mild hematuria. The patient reports taking ASA for the pain, without relief. Denies fever or chills. En route to the ER, the patient was given 15mg of Toradol by EMS. 08/24/20 11:09 Past History - Medical History Allergies/Adverse Reactions: Allergies Allergy/AdvReac Type Severity Reaction Status Date / Time raspberry [Raspberry] Allergy Verified 07/03/16 20:54 Home Medications: Ambulatory Orders Ibuprofen [Motrin] 600 mg PO TID #30 tablet 07/03/16 Penicillin V Potassium [Pen Vee K -] 500 mg PO TID #30 tablet 07/03/16 - Reproductive History Is Patient Now?: No - Immunization History Immunization Up to Date: No - Psycho-Social/Smoking History Smoking History: Never smoked - Substance Abuse Hx (Audit-C & DAST Scrn) How often the patient has a drink containing alcohol: Never Score: In Men: 4 or > Positive; In Women: 3 or > Positive: 0 Screen Result (Pos requires Nsg. Audit-10AR): Negative In the last yr the pt used illegal drug/Rx for NonMed reason: No Score: Yes response is considered Positive: 0 Screen Result (Positive result requires Nsg. DAST-10): Negative Review of Systems - Review of Systems Able to Perform ROS?: Yes Comments:: 08/24/20 10:02 GENERAL/CONSTITUTIONAL: No fever or chills. No weakness. HEAD, EYES, EARS, NOSE AND THROAT: No change in vision. No ear pain or di scharge. No sore throat. CARDIOVASCULAR: No chest pain or shortness of breath. RESPIRATORY: No cough, wheezing, or hemoptysis. GASTROINTESTINAL: +left abdominal pain. No nausea, vomiting, diarrhea or constipation. GENITOURINARY: No dysuria, frequency, or change in urination. MUSCULOSKELETAL: +left back pain. +left flank pain. No other joint or muscle swelling or pain. No neck pain. SKIN: No rash NEUROLOGIC: No headache, vertigo, loss of consciousness, or change in strength/sensation. ENDOCRINE: No increased thirst. No abnormal weight change. HEMATOLOGIC/LYMPHATIC: No anemia, easy bleeding, or history of blood clots. ALLERGIC/IMMUNOLOGIC: No hives or skin allergy. *Physical Exam - Vital Signs Last Vital Signs Temp Pulse Resp BP Pulse Ox 98.4 F 94 H 22 H 148/83 97 08/24/20 09:04 08/24/20 09:04 08/24/20 09:04 08/24/20 09:04 08/24/20 09:04 - Physical Exam 08/24/20 09:33 awake alert uncomfortable appearing. lungs clear bilat heart rrr no mrg abd soft nt nd ext wwp. no flank tenderness. ext wwp. no edema. no calf tenderness. skin warm and dry. alert oriented x 3. ED Treatment Course - LABORATORY CBC & Chemistry Diagram: 08/24/20 10:05 08/24/20 10:05 Medical Decision Making - Medical Decision Making 08/24/20 09:49 20 yo F h/o renal colic, diagnosed 08/19, s/p stent removal dr krishnamurthy yesterday here with sudden onset flank pain , denies f/c no hematurial. pain severe.took asa prior to arrival, no relief. differential recurrent stone, infection plan ct a/p labs ua pain control. 08/24/20 14:[address] no acute stone fragemnts. mild persistant mild hydro left ureter. small air c/w procedure day prior. d/w pt urologist dr Krishnamurthy, states she is expected to have pain day following procedure. pt did not pickle pumper pain medication from pharmacy. will add rx for percocet. was also given rx for abx. given dose ceftriaxone here. told important to take outpt abx. dc to home. Discharge - Discharge Information Problems reviewed: Yes Clinical Impression/Diagnosis: Flank pain Condition: Improved Disposition: HOME - Admission No - Follow up/Referral Referrals: Noe Krishnamurthy MD [Staff Physician] - - Patient Discharge Instructions Patient Printed Discharge Instructions: DI for Ureteral Stent Placement Additional Instructions: you were seen for left flank pain , following your stent removal. Per your urologist. Pain is common after stent removal. For your pain you can take ibuprofen 600 mg every 8 hours as needed for pain. you should also pickle pumper your prescription for antibiotics that was called in by Dr Krishnamurthy. you can also take percocet one every 6 hours as needed for pain not relieved by motrin. understand this is a narcotic, and is addictive medication. should only be used as needed. it can also cause constipation. while taking percocet for pain, you should also take a stool softner to prevent constipation. - Post Discharge Activity
[2020-08-24 10:12] LABS: BASO % 0.1 % (0-2.0); EOS % 0.5 % (0-4.5); HEMATOCRIT 35.2 % (32.4-45.2); HEMOGLOBIN 11.5 GM/dL (10.7-15.3); MCH 28.1 pg (25.7-33.7); MCHC 32.7 g/dl (32.0-36.0); MEAN CELL VOLUME 85.9 fl (80-96); MEAN PLT VOLUME 8.7 fl (7.5-11.1); MONO % 6.9 % (3.8-10.2); NEUT % 80.5 % (42.8-82.8); PLATELET COUNT 214 K/MM3 (134-434); RDW 12.8 % (11.6-15.6); WHITE BLOOD COUNT 12.3 K/mm3 (4.0-10.0)
[2020-08-24 10:42] LABS: ALBUMIN 3.1 g/dl (3.4-5.0); BILIRUBIN,TOTAL 0.2 mg/dL (0.2-1); BLOOD UREA NITROGEN 5.4 mg/dL (7-18); CALCIUM 8.7 mg/dL (8.5-10.1); CREATININE 0.8 mg/dL (0.55-1.3); TOT PROT 5.9 g/dl (6.4-8.2)
[2020-08-24] MEDS ORDERED: SODIUM CHLORIDE 0.9% 1000 ML INFUS.BAG IV ONE (10:55)
[2020-08-24 12:26] LABS: EPI CELLS >36 /uL (0-25.1); HYALINE CASTS 5 /uL (0-3.1); URINE APPEARANCE CLOUDY; URINE BACTERIA 14 /uL (0-1359); URINE BILIRUBIN NEGATIVE (NEGATIVE); URINE COLOR YELLOW; URINE GLUCOSE (UA) NEGATIVE (NEGATIVE); URINE KETONE 15 mg/dl (NEGATIVE); URINE LEUK ESTERASE 3+ (NEGATIVE); URINE NITRITE NEGATIVE (NEGATIVE); URINE PROTEIN TRACE (NEGATIVE); URINE RBC 216 /uL (0-23.9); URINE UROBILINOGEN 0.2 mg/dL (0.2-1.0); URINE WBC 571 /uL (0-25.8)
[2020-08-24 12:27] LABS: URINE CRYSTALS NON SEEN /hpf
[2020-08-24] MEDS ORDERED: CEFTRIAXONE 1,000 MG in DEXTROSE 5%-WATER - 50 ML IVPB ONE (13:04)
[2020-08-24] MEDS ORDERED: CEFTRIAXONE 1 GM/50 ML BAG ONE (13:06)
[2020-08-24] MEDS ORDERED: ONDANSETRON *ODT* 4 MG TABLET SL ONE (15:34)
[2020-08-24] MEDS ORDERED: ONDANSETRON *ODT* 4 MG TABLET ONE (15:34)
[2020-08-24 16:31] VITALS: BP 140/80; PULSE 90; TEMP 98.1
== END 2020-08-24 15:45 | disposition home or self-care (01) ==
LOC: JER 08:55
PROC: 3E03329 Introduction of Other Anti-infective into Peripheral Vein, Percutaneous Approach (ICD-10-PCS; principal; 2020-08-24)
PROC: 3E033GC Introduction of Other Therapeutic Substance into Peripheral Vein, Percutaneous Approach (ICD-10-PCS; 2020-08-24)
DX: R10.9 Unspecified abdominal pain (principal)
CPT/HCPCS: 36415; 74176-TC; 80053; 81003; 84703; 85025; 87077; 87086; 99284-25; Q0162

== ENCOUNTER 2021-10-06 13:34 | Emergency (ER) | payer OTHER ==
[2021-10-06 13:49] VITALS: BMI 23.0
[2021-10-06] MEDS ORDERED: ONDANSETRON 4 MG/2 ML VIAL IVPUSH ONE (14:34)
[2021-10-06] MEDS ORDERED: SODIUM CHLORIDE 0.9% 500 ML INFUS.BAG IV ONE (14:34)
[2021-10-06] MEDS ORDERED: morphine CARPU-JECT 2 MG/1 ML DISP.SYRIN IVPUSH ONE (14:34)
[2021-10-06] MEDS ORDERED: ONDANSETRON 4 MG/2 ML VIAL ONE (15:10)
[2021-10-06] MEDS ORDERED: morphine SULFATE 4 MG/ML VIAL ONE (15:10)
[2021-10-06 15:13] LABS: BASO % 0.2 % (0-2.0); EOS % 1.5 % (0-4.5); HEMOGLOBIN 13.2 GM/dL (10.7-15.3); LYMPH % 29.7 % (8-40); MCH 28.6 pg (25.7-33.7); MCHC 33.1 g/dl (32.0-36.0); MEAN CELL VOLUME 86.6 fl (80-96); MONO % 6.8 % (3.8-10.2); NEUT % 61.8 % (42.8-82.8); PLATELET COUNT 250 10^3/uL (134-434); RBC 4.61 M/mm3 (3.60-5.2); WHITE BLOOD COUNT 9.6 K/mm3 (4.0-10.0)
[2021-10-06 15:33] LABS: CALCIUM 9.4 mg/dL (8.5-10.1)
[2021-10-06 15:36] LABS: CREATININE 0.7 mg/dL (0.55-1.3)
[2021-10-06 15:38] LABS: BILIRUBIN,TOTAL 0.3 mg/dL (0.2-1); TOT PROT 7.4 g/dl (6.4-8.2)
[2021-10-06] MEDS ORDERED: METOCLOPRAMIDE HCL 10 MG TABLET (FP) PO ONE ×2 (18:30→18:42)
[2021-10-06] MEDS ORDERED: KETOROLAC TROMETHAMINE 30 MG/1 ML VIAL IVPUSH ONE (18:30)
[2021-10-06] MEDS ORDERED: KETOROLAC TROMETHAMINE 30 MG/1 ML VIAL ONE (18:42)
[2021-10-06 19:07] LABS: EPI CELLS >36 /uL (0-25.1); HYALINE CASTS 8 /uL (0-3.1); URINE APPEARANCE CLOUDY; URINE BACTERIA 606 /uL (0-1359); URINE BILIRUBIN NEGATIVE (NEGATIVE); URINE COLOR YELLOW; URINE GLUCOSE (UA) NEGATIVE (NEGATIVE); URINE KETONE TRACE (NEGATIVE); URINE LEUK ESTERASE 2+ (NEGATIVE); URINE NITRITE NEGATIVE (NEGATIVE); URINE PROTEIN TRACE (NEGATIVE); URINE RBC 32 /uL (0-23.9); URINE WBC 182 /uL (0-25.8)
[2021-10-06 20:13] VITALS: BP 110/68; PULSE 76; TEMP 97.9
== END 2021-10-06 20:14 | disposition home or self-care (01) ==
LOC: JER 13:34
PROC: 3E033GC Introduction of Other Therapeutic Substance into Peripheral Vein, Percutaneous Approach (ICD-10-PCS; principal; 2021-10-06)
DX: R10.9 Unspecified abdominal pain (principal)
CPT/HCPCS: 36415; 74176-TC; 80053; 81003; 84702; 84703; 85025; 87086; 99285-25

== ENCOUNTER 2022-02-24 18:30 | Emergency (ER) | payer OTHER ==
[2022-02-24 18:57] VITALS: TEMP 98.2; BMI 28.1
[2022-02-24] MEDS ORDERED: ACETAMINOPHEN 325 MG TABLET (FP) ONE (21:01)
[2022-02-24] MEDS ORDERED: ACETAMINOPHEN 325 MG TABLET (FP) PO ONE (21:08)
[2022-02-24 21:29] LABS: BASO % 0.2 % (0-2.0); EOS % 0.7 % (0-4.5); HEMATOCRIT 43.7 % (32.4-45.2); HEMOGLOBIN 14.4 GM/dL (10.7-15.3); LYMPH % 21.4 % (8-40); MCH 28.3 pg (25.7-33.7); MCHC 33.1 g/dl (32.0-36.0); MEAN CELL VOLUME 85.6 fl (80-96); MEAN PLT VOLUME 8.6 fl (7.5-11.1); MONO % 8.9 % (3.8-10.2); NEUT % 68.8 % (42.8-82.8); PLATELET COUNT 244 10^3/uL (134-434); RBC 5.11 M/mm3 (3.60-5.2); RDW 13.1 % (11.6-15.6); WHITE BLOOD COUNT 11.7 K/mm3 (4.0-10.0)
[2022-02-24 21:30] LABS: EPI CELLS >36 /uL (0-25.1); HYALINE CASTS 8 /uL (0-3.1); URINE APPEARANCE CLOUDY; URINE BACTERIA 3066 /uL (0-1359); URINE BILIRUBIN NEGATIVE (NEGATIVE); URINE COLOR YELLOW; URINE GLUCOSE (UA) NEGATIVE (NEGATIVE); URINE KETONE 4+ (NEGATIVE); URINE LEUK ESTERASE 2+ (NEGATIVE); URINE NITRITE NEGATIVE (NEGATIVE); URINE PROTEIN TRACE (NEGATIVE); URINE RBC 63 /uL (0-23.9); URINE WBC 118 /uL (0-25.8)
[2022-02-24] MEDS ORDERED: LACTATED RINGERS SOLUTION 1000 ML INFUS.BAG IV ONE (21:31)
[2022-02-24] MEDS ORDERED: ONDANSETRON 4 MG/2 ML VIAL IVPUSH ONE (21:32)
[2022-02-24 21:52] LABS: CALCIUM 9.3 mg/dL (8.5-10.1)
[2022-02-24 21:53] LABS: ALBUMIN 4.2 g/dl (3.4-5.0); BLOOD UREA NITROGEN 8.8 mg/dL (7-18)
[2022-02-24 21:56] LABS: CREATININE 0.7 mg/dL (0.55-1.3)
[2022-02-24 21:57] LABS: BILIRUBIN,TOTAL 0.7 mg/dL (0.2-1)
[2022-02-24 21:58] LABS: TOT PROT 8.3 g/dl (6.4-8.2)
[2022-02-24 22:21] LABS: HCG,QUALITATIVE URINE Negative
[2022-02-24] MEDS ORDERED: CEPHALEXIN MONOHYDRATE 500 MG CAPSULE (UD) PO ONE (22:24)
[2022-02-24] MEDS ORDERED: CEPHALEXIN MONOHYDRATE 500 MG CAPSULE (UD) ONE (22:28)
[2022-02-24 22:47] LABS: URINE CRYSTALS NONE SEEN /hpf
[2022-02-24 23:13] VITALS: BP 124/78; PULSE 68
[2022-02-26 00:06] LABS: SARS-CoV-2 NAA Not Detected (Not Detected)
== END 2022-02-24 23:13 | disposition home or self-care (01) ==
LOC: JER 18:30
PROC: 3E033GC Introduction of Other Therapeutic Substance into Peripheral Vein, Percutaneous Approach (ICD-10-PCS; principal; 2022-02-24)
DX: N39.0 Urinary tract infection, site not specified (principal)
CPT/HCPCS: 36415; 80053; 81003; 84703; 85025; 87086; 87804; 99284-25; C9803-CS; U0003; U0005

== ENCOUNTER 2022-10-16 21:07 | Emergency (ER) | payer OTHER ==
[2022-10-16 21:20] VITALS: BP 114/68; PULSE 106; RESP 18; TEMP 98.1; BMI 26.5
[2022-10-16] MEDS ORDERED: SODIUM CHLORIDE 0.9% 500 ML INFUS.BAG IV ONE (21:33)
[2022-10-16] MEDS ORDERED: morphine CARPU-JECT 2 MG/1 ML DISP.SYRIN IVPUSH ONE (21:34)
[2022-10-16] MEDS ORDERED: ONDANSETRON 4 MG/2 ML VIAL IVPUSH ONE (21:37)
[2022-10-16] MEDS ORDERED: morphine CARPU-JECT 4 MG/1 ML DISP.SYRIN IVPUSH ONE (21:38)
[2022-10-16] MEDS ORDERED: ONDANSETRON 4 MG/2 ML VIAL ONE (21:57)
[2022-10-16 22:09] LABS: BASO % 0.2 % (0-2.0); EOS % 0.3 % (0-4.5); HEMATOCRIT 44.2 % (32.4-45.2); HEMOGLOBIN 14.6 GM/dL (10.7-15.3); LYMPH % 5.2 % (8-40); MEAN CELL VOLUME 84.9 fl (80-96); MEAN PLT VOLUME 9.1 fl (7.5-11.1); MONO % 11.8 % (3.8-10.2); NEUT % 82.5 % (42.8-82.8); PLATELET COUNT 237 10^3/uL (134-434); WHITE BLOOD COUNT 8.5 K/mm3 (4.0-10.0)
[2022-10-16 22:12] LABS: EPI CELLS 21 /uL (0-25.1); HYALINE CASTS 0 /uL (0-3.1); PH,URINE 5.5 (5.0-8.0); URINE APPEARANCE CLEAR; URINE BACTERIA 130 /uL (0-1359); URINE BILIRUBIN NEGATIVE (NEGATIVE); URINE COLOR YELLOW; URINE GLUCOSE (UA) NEGATIVE (NEGATIVE); URINE KETONE 1+ (NEGATIVE); URINE LEUK ESTERASE TRACE (NEGATIVE); URINE NITRITE NEGATIVE (NEGATIVE); URINE PROTEIN NEGATIVE (NEGATIVE); URINE RBC 31 /uL (0-23.9); URINE UROBILINOGEN 0.2 mg/dL (0.2-1.0); URINE WBC 14 /uL (0-25.8)
[2022-10-16 22:37] LABS: CALCIUM 9.5 mg/dL (8.5-10.1)
[2022-10-16 22:38] LABS: ALBUMIN 4.2 g/dl (3.4-5.0); BLOOD UREA NITROGEN 8.7 mg/dL (7-18)
[2022-10-16 22:41] LABS: CREATININE 0.9 mg/dL (0.55-1.3)
[2022-10-16 22:42] LABS: TOT PROT 7.7 g/dl (6.4-8.2)
[2022-10-16 22:43] LABS: BILIRUBIN,TOTAL 0.2 mg/dL (0.2-1)
== END 2022-10-17 00:29 | disposition home or self-care (01) ==
LOC: JER 21:07
PROC: 3E033NZ Introduction of Analgesics, Hypnotics, Sedatives into Peripheral Vein, Percutaneous Approach (ICD-10-PCS; principal; 2022-10-16)
PROC: 3E033GC Introduction of Other Therapeutic Substance into Peripheral Vein, Percutaneous Approach (ICD-10-PCS; 2022-10-16)
DX: N20.0 Calculus of kidney (principal)
CPT/HCPCS: 36415; 74176-TC; 80053; 81003; 84703; 85025; 87086; 99284-25

== ENCOUNTER 2023-03-19 20:03 | Emergency (ER) | payer OTHER ==
[2023-03-19 20:31] VITALS: BP 121/62; PULSE 77; RESP 18; TEMP 98.2; BMI 26.5
[2023-03-19] MEDS ORDERED: ACETAMINOPHEN 500 MG TABLET (FP) PO ONE (21:33)
[2023-03-19] MEDS ORDERED: ACETAMINOPHEN 500 MG TABLET (FP) ONE (21:36)
[2023-03-19 22:13] LABS: THROAT:GRP A STREP NOT DETECTED (NOTDETECTED)
[2023-03-19] MEDS ORDERED: AMOXICILLIN 500 MG CAPSULE (FP) PO ONE (22:57)
[2023-03-19] MEDS ORDERED: AMOXICILLIN 250 MG CAPSULE ONE ×2 (23:02→23:03)
== END 2023-03-19 23:06 | disposition home or self-care (01) ==
LOC: JER 20:03 → JERFT 20:03
DX: H66.92 Otitis media, unspecified, left ear (principal); J06.9 Acute upper respiratory infection, unspecified; J02.9 Acute pharyngitis, unspecified; Z20.822 Contact with and (suspected) exposure to COVID-19
CPT/HCPCS: 0241U-QW; 87070; 87651; 99283-25

== ENCOUNTER 2023-10-09 16:56 | Emergency (ER) | payer OTHER ==
[2023-10-09 17:10] VITALS: BP 124/70; PULSE 103; RESP 18; TEMP 98.2; BMI 31.8
[2023-10-09] MEDS ORDERED: ACETAMINOPHEN 1000 MG/100 ML BAG IVPB ONE (17:15)
[2023-10-09] MEDS ORDERED: SODIUM CHLORIDE 0.9% 500 ML INFUS.BAG IV ONE (17:15)
[2023-10-09] MEDS ORDERED: ACETAMINOPHEN INJECTION 100 ML IVPB ONE (17:40)
[2023-10-09 18:14] LABS: BASO % 0.2 % (0-2.0); EOS % 0.9 % (0-4.5); HEMATOCRIT 44.5 % (32.4-45.2); HEMOGLOBIN 14.4 GM/dL (10.7-15.3); LYMPH % 15.7 % (8-40); MCH 28.2 pg (25.7-33.7); MCHC 32.4 g/dl (32.0-36.0); MEAN CELL VOLUME 86.9 fl (80-96); MEAN PLT VOLUME 8.5 fl (7.5-11.1); MONO % 7.2 % (3.8-10.2); PLATELET COUNT 337 10^3/uL (134-434); RBC 5.12 M/mm3 (3.60-5.2); RDW 13.3 % (11.6-15.6); WHITE BLOOD COUNT 12.9 K/mm3 (4.0-10.0)
[2023-10-09 18:19] LABS: EPI CELLS >36 /uL (0-25.1); HYALINE CASTS 3 /uL (0-3.1); URINE APPEARANCE CLOUDY; URINE BACTERIA 930 /uL (0-1359); URINE BILIRUBIN NEGATIVE (NEGATIVE); URINE COLOR YELLOW; URINE GLUCOSE (UA) NEGATIVE (NEGATIVE); URINE KETONE NEGATIVE (NEGATIVE); URINE LEUK ESTERASE 3+ (NEGATIVE); URINE NITRITE NEGATIVE (NEGATIVE); URINE PROTEIN TRACE (NEGATIVE); URINE RBC 25 /uL (0-23.9); URINE WBC 216 /uL (0-25.8)
[2023-10-09 18:21] LABS: INR 1.27 (0.83-1.09); PROTHROMBIN TIME (PATIENT) 14.7 SEC (9.7-13.0)
[2023-10-09 18:24] LABS: POTASSIUM 4.1 mmol/L (3.5-5.1)
[2023-10-09 18:26] LABS: BLOOD UREA NITROGEN 7.7 mg/dL (7-18)
[2023-10-09 18:27] LABS: ALBUMIN 4.1 g/dl (3.4-5.0)
[2023-10-09 18:30] LABS: CREATININE 0.8 mg/dL (0.55-1.3)
[2023-10-09 18:31] LABS: BILIRUBIN,TOTAL 0.5 mg/dL (0.2-1); TOT PROT 7.9 g/dl (6.4-8.2)
[2023-10-09 18:32] LABS: CALCIUM 9.8 mg/dL (8.5-10.1)
[2023-10-09] MEDS ORDERED: KETOROLAC TROMETHAMINE 30 MG/1 ML VIAL IVPUSH ONE (20:30)
[2023-10-09] MEDS ORDERED: CEFTRIAXONE 1 GM in DEXTROSE 5%-WATER - 100 ML IVPB ONE (20:38)
[2023-10-09] MEDS ORDERED: KETOROLAC TROMETHAMINE 30 MG/1 ML VIAL ONE (21:07)
[2023-10-09] MEDS ORDERED: CEFTRIAXONE 1 GM/50 ML BAG ONE (21:08)
== END 2023-10-09 21:39 | disposition home or self-care (01) ==
LOC: JER 16:56
PROC: 3E033GC Introduction of Other Therapeutic Substance into Peripheral Vein, Percutaneous Approach (ICD-10-PCS; principal; 2023-10-09)
PROC: 3E033NZ Introduction of Analgesics, Hypnotics, Sedatives into Peripheral Vein, Percutaneous Approach (ICD-10-PCS; 2023-10-09)
PROC: 3E0333Z Introduction of Anti-inflammatory into Peripheral Vein, Percutaneous Approach (ICD-10-PCS; 2023-10-09)
DX: R10.9 Unspecified abdominal pain (principal); N30.00 Acute cystitis without hematuria; N12 Tubulo-interstitial nephritis, not specified as acute or chronic
CPT/HCPCS: 36415; 74176-TC; 80053; 81003; 84703; 85025; 85610; 86850; 86900; 86901; 87077; 87086; 99284-25

== ENCOUNTER 2024-03-13 08:42 | Emergency (ER) | payer OTHER ==
[2024-03-13 08:51] VITALS: BP 113/73; PULSE 82; RESP 18; TEMP 97.1; BMI 31.8
[2024-03-13] MEDS ORDERED: IBUPROFEN 600 MG TABLET (FP) PO ONE (09:32)
[2024-03-13] MEDS ORDERED: AMOX TR/POT CLAV 875MG/125MG TABLETS (FP) ONE (09:32)
[2024-03-13] MEDS: IBUPROFEN 600 MG TABLET (FP) PO ONE (09:34)
[2024-03-13] MEDS: AMOX TR/POT CLAV 875MG/125MG TABLETS (FP) PO ONE (09:34)
== END 2024-03-13 09:51 | disposition home or self-care (01) ==
LOC: JERFT 08:42
DX: H92.02 Otalgia, left ear (principal); H93.12 Tinnitus, left ear; J02.9 Acute pharyngitis, unspecified; R51.9 Headache, unspecified; H66.002 Acute suppurative otitis media without spontaneous rupture of ear drum, left ear
CPT/HCPCS: 99283-25